=== PATIENT | female | born 1960 | race Caucasian/White ===

== ENCOUNTER → 2023-11-14 08:24 | Outpatient (REF) | payer OTHER, SELFPAY | LOC: RCS 08:24 | PROVIDERS: ATTENDING PHYSICIAN Orthopaedic Surgery; FAMILY PHYSICIAN Internal Medicine | DX: Z01.818 Encounter for other preprocedural examination (principal) | CPT/HCPCS: 93005 ==

== ENCOUNTER → 2024-04-05 07:08 | Outpatient (REF) | payer OTHER, SELFPAY | LOC: RAD 07:08 | PROVIDERS: ATTENDING PHYSICIAN Nurse Practitioner Family; REFERRING PHYSICIAN Urology | DX: R31.9 Hematuria, unspecified (principal) | CPT/HCPCS: 74176 ==

== ENCOUNTER → 2024-05-06 18:00 | Outpatient (REF) | payer OTHER, SELFPAY | LOC: MRI 3T 18:00 | PROVIDERS: ATTENDING PHYSICIAN Family Medicine; FAMILY PHYSICIAN Internal Medicine | DX: K86.2 Cyst of pancreas (principal) | CPT/HCPCS: 74183; A9575 ==

== ENCOUNTER → 2024-07-20 07:23 | Outpatient (REF) | payer OTHER, SELFPAY | LOC: HWRAD 07:23 | PROVIDERS: ATTENDING PHYSICIAN Otolaryngology; FAMILY PHYSICIAN Internal Medicine | DX: J32.0 Chronic maxillary sinusitis (principal) | CPT/HCPCS: 70486 ==

== ENCOUNTER 2024-09-19 06:16 | Day surgery (SDC) | payer OTHER, SELFPAY | END 2024-09-19 16:01 | disposition home or self-care (01) | LOC: GI 06:16 | PROVIDERS: ATTENDING PHYSICIAN Internal Medicine Gastroenterology | DX: Z12.11 Encounter for screening for malignant neoplasm of colon (principal); K64.8 Other hemorrhoids; D12.2 Benign neoplasm of ascending colon; Z86.0100 Personal history of colon polyps, unspecified | CPT/HCPCS: 45380; 88305 ==

== ENCOUNTER 2025-01-28 07:21 | Emergency (ER) | payer OTHER, SELFPAY ==
[2025-01-28 07:36] VITALS: BP 201/104
--- NOTE | 2025-01-28 08:57 | ED.GENMED ---
History of Present Illness
General
Chief Complaint: Headache
Source: patient
Exam Limitations: none
Time Seen by Provider: 01/28/25 08:26
Nursing documentation reviewed up to this point in time: agreed with
History of Present Illness
History of Present Illness:
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
Chronic sinus issues status post sinus surgery August 2024
Presents for right upper dental pain/jaw pain over the last 2 weeks with increased congestion, sinus pressure, maybe even subtle right-sided facial swelling. Patient has not had any fevers or chills that she knows of, double vision, blurred vision,
trismus, trouble swallowing. Patient says the pain is not exertional and she has been treating it with Tylenol and occasionally Motrin which was helping but and then last night she had trouble sleeping for the first time. Patient says the pain is
now radiating into her right lower jaw and into her neck. She takes amlodipine at night and took it last night. Normally her blood pressure runs 140s over 80s.
She went to the dentist 2 days ago to make sure there was not a dental problem. They did an x-ray and said her teeth are okay but it looks like she has got a haziness or opacification of her sinus on the right side. Patient has an appointment to
see her ENT in several days but because of the pain she decided to come in.
She has not had any dizziness, chest pain, shortness of breath, syncope
Past History
Past History
ED Past Medical History: HTN
ED Past Surgical History: and Other (neck aneurysm clipping)
Social History
Tobacco: Non-smoker
Alcohol: None
Review of Systems
Review of Systems
Allergies reviewed?: Yes
All Other Systems: Not applicable
Phy Exam
Physical Exam
Physical Exam:
GENERAL: Alert , in no apparent distress
head: NCAT
EYE: pupils equal and reactive
NECK: Supple, full rom, no obvious masses
ENT: o/p clr, mmm.
teeth stable
no trismus
+sinus tenderness R side
CARDIAC: Regular rate and rhythm .
LUNGS: Clear breath sounds bilaterally, no acute respiratory distress, no wheezes/rales/rhonchi
ABDOMEN: Soft, without focal tenderness, no r/g, no cvat, normal bowel sounds
NEUROLOGICAL: Alert and oriented, no focal neuro deficits
SKIN: Warm and dry, skin intact.
MUSCULOSKELETAL: No edema, well perfused. neg levi's sign
PSYCH: Normal and appropriate interaction.
Course
Orders/Labs/Results
Orders:
Orders
01/28/25 08:49
Electrocardiogram (*1) Stat
Reason for Study: Other
Other Reason for Exam: Headache
Cardiac Monitoring- Treatment ONCE
EKG- Treatment ONCE
Hydrocodone 5/APAP 325 [[place]ter[place] 5/325] 1 tablet PO NOW STA
01/28/25 08:54
CT Neck Angio W/wo Iv Contrast Urgent
Comment:
Reason For Exam: h/o aneurysm neck; R jaw/neck pain
01/28/25 09:11
Complete Blood Count/With Diff Urgent
Comprehensive Metabolic Panel Urgent
Troponin I Urgent
Abnormal Lab Results
01/28/25
09:11
MPV 10.6 H fL
(7.4-10.4)
Chloride 110 H mmol/L
(98-107)
Glucose 131 H mg/dl
(70-99)
01/28/25 09:11
01/28/25 09:11
Vital Signs
Initial and Last Documented VS:
Initial Vital Signs
Temp Pulse Resp BP Pulse Ox
36.8 C 61 20 201/104 99
01/28/25 07:36 01/28/25 07:36 01/28/25 07:36 01/28/25 07:36 01/28/25 07:36
Last Documented Vital Signs
Temp Pulse Resp BP Pulse Ox
36.8 C 56 17 150/72 100
01/28/25 07:36 01/28/25 11:00 01/28/25 11:00 01/28/25 09:14 01/28/25 11:00
MDM/Problems Addressed
Differential Diagnosis Includes:
sinusitis, carotid dissection
MDM/Problems Addressed:
64-year-old female with a history of chronic sinus disease status post sinus surgery in August presents for increasing congestion, repeated her upper teeth, facial pressure which has progressed to her right jaw and right neck causing difficulty
sleeping. Is not exertional, she has able to open her mouth, there is no fever or significant facial swelling. She has no vision changes or dizziness. Patient does have a history of an aneurysm clipping when she was 4 years old right side of her
neck. Patient was significantly hypertensive on arrival although I believe this is probably related to pain, anxiety and whitecoat syndrome, her blood pressure did downtrend to 150/70 without intervention other than pain control. She had some
tenderness to the palpation of her right maxillary sinus but no swelling. Her teeth appear stable. She just went to the dentist 2 days ago and was reassured that her x-ray did not show any dental infection, she did have some opacification on x-ray
of her sinuses on the right side. Patient has an appointment with her ENT doctor but given her history of her aneurysm, degree of her hypertension and progression of her symptoms into her neck ultimately CT the neck with angio to ensure that this
was not a vascular cause for her pain. Her CT was unremarkable, other than some paranasal sinus disease. Patient will be empirically treated with Augmentin twice daily, Zyrtec, she is already on a nasal steroid and she has close follow-up with her
ENT
*Critical Care Note
Total Time (30-74mins, 75-104mins- exclusive of procedures): Not Applicable
ED Attending Note
-
Portions of this chart may have been created with voice recognition software.� Occasional wrong word or��sound alike� substitutions may have occurred due to the inherent limitations of voice recognition software.
Discharge Plan
Departure
Patient Disposition: Home (Routine Discharge)
Date of Disposition: 01/28/25
Time of Disposition: 11:48
Patient with high blood pressure during this ER visit?: Yes
Condition: Fair
Covid-19: Not Applicable
Discharge Problem:
Sinusitis
Instructions: Sinusitis in adults - ED discharge instructions, BLOOD PRESSURE
Prescriptions:
New
amoxicillin-pot clavulanate 875-125 mg tablet
1 tab PO BID Qty: 20 0RF
cetirizine [Zyrtec] 10 mg tablet
10 mg PO DAILY Qty: 10 0RF
hydrocodone-acetaminophen 5-325 mg tablet
1 tab PO BID PRN (Reason: Pain) Qty: 3 0RF
No Action
cephalexin [Keflex] 500 MG capsule
500 mg PO BID Qty: 14 0RF
phenazopyridine 100 MG tablet
100 mg PO TID Qty: 6 0RF
hydrochlorothiazide 25 MG tablet
25 mg PO DAILY Qty: 30 0RF
oxycodone-acetaminophen 5 MG/325 MG tablet
1 tab PO Q6HPRN PRN (Reason: pain) Qty: 12 0RF
tamsulosin 0.4 MG capsule
0.4 mg PO DAILY Qty: 7 0RF
ondansetron 4 MG tablet,disintegrating
4 mg PO TIDPRN PRN (Reason: nausea/vomiting) Qty: 12 0RF
Referrals:
Susan Barros MD [Family Provider] -
Activity Restrictions/Additional Instructions:
The CAT scan of your neck did not show any narrowing of the vessels or dissection of the artery, aneurysm etc. You do have sinus disease. Take Augmentin twice a day for 10 days. While you are on this you might want to use a probiotic to help with
your gut.
For pain take Tylenol or ibuprofen. You can use the pain pill tonight before bed as needed. It does have 1 tablet of Tylenol in it.
Use nasal spray as usual
take zyrtec once a day
see your ent
return fo rany concerns.
Interventions
Interventions:
*Risk Screen - Suicide Last Done: 01/28/25 07:37
*Neglect/Abuse Screening Last Done: 01/28/25 07:37
*Nursing Disposition Last Done: 01/28/25 12:17
ED- Neurological Assessment Last Done: 01/28/25 09:07
Discharge Date and Time
Discharge Date/Time: 01/28/25 12:21
Print Language: HUNGARIAN
[2025-01-28 09:07] VITALS: BMI 31.3
[2025-01-28] MEDS: NORCO 5/325 1 TABLET PO (09:11)
[2025-01-28 09:14] VITALS: BP 150/72
[2025-01-28 09:29] LABS: % Basophils 0.7 % (0-2); % Eosinophils 3.4 % (0-6); % Immature Granulocytes 0.2 % (0-0.5); % Lymphocytes 23.6 % (20.5-51.1); % Monocytes 7.1 % (1.7-9.3); Absolute Eosinophils 0.2 10^3/uL (0-0.7); Absolute Lymphocytes 1.3 10^3/uL (1.2-3.4); Absolute Monocytes 0.4 10^3/uL (0.1-0.6); Absolute Neutrophils 3.6 10^3/uL (1.4-6.5); Hematocrit 43.5 % (37.0-47.0); Hemoglobin 14.8 g/dL (12.0-16.0); Mean Corpuscular Hgb 30.6 pg (27.0-31.0); Mean Corpuscular Volume 90.1 fL (81.0-99.0); Mean Platelet Volume 10.6 fL (7.4-10.4); Nucleated Red Blood Cells % 0 %; Platelet Count 259 10^3/uL (130-400); Red Blood Cell Count 4.83 10^6/uL (4.20-5.40); Red Cell Dist. Width 13.2 % (11.5-14.5); White Blood Cell Count 5.6 10^3/uL (4.8-10.8)
[2025-01-28 09:41] LABS: ALT (SGPT) 15 U/L (0-35); AST (SGOT) 18 U/L (14-36); Albumin 4.1 g/dl (3.5-5.0); Alkaline Phosphatase 101 U/L (38-126); Blood Urea Nitrogen 10 mg/dl (7-17); Calcium 9.8 mg/dl (8.4-10.2); Carbon Dioxide 26 mmol/L (22-30); Chloride 110 mmol/L (98-107); Estimated Creatinine Clearance 90 ml/min; Glucose 131 mg/dl (70-99); Potassium 4.3 mmol/L (3.5-5.1); Sodium 142 mmol/L (135-145); Total Bilirubin 0.4 mg/dl (0.2-1.3); Total Protein 6.5 g/dl (6.3-8.2); eGFR > 60.00
[2025-01-28 09:52] LABS: Troponin I < 0.012 ng/ml
== END 2025-01-28 12:21 | disposition home or self-care (01) ==
LOC: EMR 07:21
PROVIDERS: Physician Assistant; EMERGENCY PHYSICIAN Emergency Medicine; FAMILY PHYSICIAN Internal Medicine
DX: J32.9 Chronic sinusitis, unspecified (principal); I10 Essential (primary) hypertension; K08.89 Other specified disorders of teeth and supporting structures; Z98.890 Other specified postprocedural states; Z86.79 Personal history of other diseases of the circulatory system
CPT/HCPCS: 99284; 70498; 80053; 84484; 85025; 93005; Q9967

== ENCOUNTER → 2025-08-24 10:39 | Outpatient (REF) | payer OTHER, SELFPAY | LOC: RAD 10:39 | PROVIDERS: ATTENDING PHYSICIAN Internal Medicine Gastroenterology; FAMILY PHYSICIAN Nurse Practitioner Adult Health | DX: Z13.820 Encounter for screening for osteoporosis (principal) | CPT/HCPCS: 74183; A9575 ==